=== PATIENT | female | born 1965 ===

== ENCOUNTER 2018-02-08 00:09 | Emergency (ER) | payer OTHER ==
[2018-02-08] MEDS ORDERED: Tdap Vaccine 0.5 ml Vial (10-64 yrs) IM ONE ×2 (01:12→01:23)
--- NOTE | 2018-02-08 01:14 | ED PDOC ---
HPI: Wound Care - HPI Time Seen by Provider: 02/08/18 00:56 Chief Complaint (Nursing): Abnormal Skin Integrity Chief Complaint (Provider): right hand laceration History Per: Patient, Family History Of Present Illness: 52 y/o female presents for lacerations to right hand sustained 3 hours prior to arrival. Patient states she was cleaning dishes and a glass cup broke, cutting her 1st and 2nd digit of right hand. Patient tried applying pressure but bleeding did not stop, which prompted ED visit. Denies headache, dizziness, numbness/weakness right upper extremity, limitation of movement of right upper extremity. Tetanus not up to date. Past Medical History Reviewed: Historical Data, Nursing Documentation, Vital Signs Vital Signs: Last Vital Signs Temp 98.1 F 02/08/18 00:24 Pulse 66 02/08/18 00:24 Resp 18 02/08/18 00:24 BP 224/103 H 02/08/18 00:24 Pulse Ox 99 02/08/18 00:24 - Medical History PMH: HTN (not on meds) - Surgical History Surgical History: No Surg Hx - Family History Family History: States: No Known Family Hx - Living Arrangements Living Arrangements: With Family - Allergies Allergies/Adverse Reactions: Allergies Allergy/AdvReac Type Severity Reaction Status Date / Time No Known Allergies Allergy Verified 02/08/18 00:24 Review of Systems ROS Statement: Except As Marked, All Systems Reviewed And Found Negative Musculoskeletal: Positive for: Hand Pain (laceration to 1st and 2nd digits) Physical Exam - Reviewed Nursing Documentation Reviewed: Yes Vital Signs Reviewed: Yes - Physical Exam Appears: Positive for: Well, Non-toxic, No Acute Distress Pulses-Radial (L): 2+ Pulses-Radial (R): 2+ Extremity: Positive for: Normal ROM, Other (2.5cm curvi-linear laceration dorsal right hand base of 2nd digit extending medially. 1cm skin avulsion distal right hand first digit with minimal active bleeding. FROM. Distal NV/ motor intact) Neurologic/Psych: Positive for: Alert, Oriented. Negative for: Motor/Sensory Deficits - ECG O2 Sat by Pulse Oximetry: 99 - Progress ED Course And Treament: xray, adacel, wound care Gelfoam applied to skin abrasion of base of thumb, wrapped in sterile dressing See procedure note for lac repair of right hand 2nd digit Patient/daughter educated on wound care, advised suture removal 8-10 days. Ice, elevate affected area. Follow up PMD 2-3 days. Return precautions given Procedure: Wound Repair - Indications Indication(s):: Laceration - Location Location:: Right Shape:: Curvilinear Dimensions Length cm: 3cm Depth:: Epidermis - Anesthetic Technique Local/Regional Anesthetic:: Lidocaine 1% - Debris Debris:: None - Irrigated Irrigated with ml of normal saline: 250mL - Complexity Complexity:: Simple (one layer) - Wound repair method Sutures:: # (8), Size (4'0), Type (nonabsorbable), Technique (interrupted) - Muscle repiar layer closed with Muscle repair layer closed with:: Wound well approximated, Abx ointment applied , Dressing applied, Tetanus ordered - Patient tolerated procedure Patient Tolerated Procedure:: Well Disposition - Clinical Impression Clinical Impression: Hand laceration Counseled Patient/Family Regarding: Studies Performed, Diagnosis, Need For Followup - Disposition Referrals: [facility] [Outside] Disposition: Routine/Home Disposition Time: 02:08 Condition: STABLE Instructions: Laceration Repair Print Language: JAMAICAN
[2018-02-08] MEDS ORDERED: Absorbable Gelatin Sponge Size 12-7 ONE (01:22)
[2018-02-08 02:20] VITALS: PULSE 86
[2018-02-08 03:23] VITALS: O2SAT 99
[2018-02-08 03:29] VITALS: BP 137/78; RESP 18; TEMP 98.3
--- NOTE | 2018-02-08 09:31 | RAD ---
PROCEDURE: Right Hand Radiographs. HISTORY: cut hand with glass 1st and 2nd digits COMPARISON: None. FINDINGS: BONES: Normal. No fracture. JOINTS: Normal. No osteoarthritic changes. SOFT TISSUES: No radiopaque foreign bodies are identified. OTHER FINDINGS: None. IMPRESSION: Normal right hand radiographs.
== END 2018-02-08 03:32 | disposition home or self-care (01) ==
LOC: H.ER 00:09
DX: S61.411A Laceration without foreign body of right hand, initial encounter (principal); I10 Essential (primary) hypertension; W25.XXXA Contact with sharp glass, initial encounter; Y93.G1 Activity, food preparation and clean up; Z23 Encounter for immunization

== ENCOUNTER 2018-02-22 10:09 | Emergency (ER) | payer SELFPAY ==
[2018-02-22 10:19] VITALS: BMI 29.8
[2018-02-22 10:21] VITALS: BP 155/92; PULSE 66; RESP 20; TEMP 97.5; O2SAT 98
--- NOTE | 2018-02-22 11:06 | ED PDOC ---
HPI: Wound Care - HPI Time Seen by Provider: 02/22/18 10:57 Chief Complaint (Nursing): Suture/Staple Removal Chief Complaint (Provider): SUTURE REMOVAL History Per: Patient (52 Y/O FEMALE HERE FOR REMOVAL OF SUTURES PLACED 1 WEEK PRIOR. NO COMPLAINTS.) Past Medical History Reviewed: Historical Data, Nursing Documentation, Vital Signs Vital Signs: Last Vital Signs Temp 97.5 F L 02/22/18 10:20 Pulse 66 02/22/18 10:20 Resp 20 02/22/18 10:20 BP 155/92 H 02/22/18 10:20 Pulse Ox 98 02/22/18 10:20 - Medical History PMH: HTN (not on meds) - Family History Family History: States: No Known Family Hx - Allergies Allergies/Adverse Reactions: Allergies Allergy/AdvReac Type Severity Reaction Status Date / Time No Known Allergies Allergy Verified 02/22/18 10:53 Review of Systems ROS Statement: Except As Marked, All Systems Reviewed And Found Negative Physical Exam - Reviewed Nursing Documentation Reviewed: Yes Vital Signs Reviewed: Yes - Physical Exam Appears: Positive for: Well, Non-toxic, No Acute Distress Head Exam: Positive for: ATRAUMATIC, NORMAL INSPECTION, NORMOCEPHALIC Skin: Positive for: Normal Color, Warm, DRY Eye Exam: Positive for: EOMI, Normal appearance, PERRL ENT: Positive for: Normal ENT Inspection Neck: Positive for: Normal, Painless ROM Cardiovascular/Chest: Positive for: Regular Rate, Rhythm Respiratory: Positive for: CNT, Normal Breath Sounds Gastrointestinal/Abdominal: Positive for: Normal Exam, Soft Back: Positive for: Normal Inspection Extremity: Positive for: Normal ROM, Other (SUTURES INTACT. WELL HEALING) Neurologic/Psych: Positive for: Alert, Oriented - ECG O2 Sat by Pulse Oximetry: 98 - Progress ED Course And Treament: SUTURES REMOVED WITHOUT DIFFICULTY. Disposition - Clinical Impression Clinical Impression: Removal of suture - Patient ED Disposition Is Patient to be Admitted: No - Disposition Disposition: Routine/Home Disposition Time: 10:58 Condition: FAIR Instructions: Stitches Removal
== END 2018-02-22 11:00 | disposition home or self-care (01) ==
LOC: H.ER 10:09
DX: Z48.02 Encounter for removal of sutures (principal); I10 Essential (primary) hypertension

== ENCOUNTER 2018-06-28 22:21 | Emergency (ER) | payer SELFPAY ==
[2018-06-28 22:22] VITALS: BMI 29.8
[2018-06-28 23:56] VITALS: BP 149/89; PULSE 67; RESP 18; TEMP 98.2; O2SAT 100
--- NOTE | 2018-06-29 01:13 | ED PDOC ---
Upper Extremity Pain/Injury Time Seen by Provider: 06/29/18 00:09 Chief Complaint (Nursing): Finger,Hand,&Wrist Chief Complaint (Provider): Right hand swelling and pain History Per: Patient History/Exam Limitations: no limitations Onset/Duration Of Symptoms: Hrs Current Symptoms Are (Timing): Still Present Additional Complaint(s): 53 y/o F with hx of HTN who presents after fall onto Right hand this morning after tripping while running to get to work. Patient states that the pain has become unbearable. States that she has pain in fingers, hand and wrist up arm. No numbness or tingling. No head trauma or dizziness. She took Tylenol this morning but has not taken anything since. Past Medical History Reviewed: Historical Data, Nursing Documentation, Vital Signs Vital Signs: Last Vital Signs Temp 98.2 F 06/28/18 23:53 Pulse 67 06/28/18 23:53 Resp 18 06/28/18 23:53 BP 149/89 06/28/18 23:53 Pulse Ox 100 06/28/18 23:53 - Medical History PMH: HTN (not on meds) - Family History Family History: States: Unknown Family Hx - Social History Current smoker - smoking cessation education provided: No Alcohol: None Drugs: Denies - Home Medications Home Medications: Ambulatory Orders Medication Instructions Recorded Ibuprofen [Motrin Tab] 600 mg PO Q6 PRN 5 Days tab 06/29/18 - Allergies Allergies/Adverse Reactions: Allergies Allergy/AdvReac Type Severity Reaction Status Date / Time No Known Allergies Allergy Verified 06/28/18 23:53 Physical Exam - Reviewed Nursing Documentation Reviewed: Yes Vital Signs Reviewed: Yes - Physical Exam Appears: Positive for: Well Head Exam: Positive for: ATRAUMATIC Skin: Positive for: Normal Color Extremity: Positive for: Swelling (+ ecchymosis on palmar and volar aspect of Right hand with swelling of Right anterior wrist and digits 3 - 5. ). Negative for: Normal ROM (decreased flexion of DIP, PIP of digits 3 - 5 on Right hand. Normal ROM of Right wrist and elbow. ) - ECG O2 Sat by Pulse Oximetry: 100 Medical Decision Making Medical Decision Making: Right hand and Right wrist x-ray Ibuprofen 600mg PO x 1 Ice to Right hand Hand and wrist x-ray read by me: no fracture or acute bony abnormality noted Right hand splint. Stable for D/c home with Ibuprofen for pain. Disposition - Clinical Impression Clinical Impression: Injury of right hand Counseled Patient/Family Regarding: Studies Performed, Diagnosis, Need For Followup, Rx Given - Disposition Referrals: [facility] [Outside] Disposition: Routine/Home Disposition Time: 05:31 Condition: STABLE Additional Instructions: Rest right hand, Ice, use hand splint for comfort and Ibuprofen for swelling/pain. Return to ED if pain or swelling worsen. Prescriptions: Ibuprofen [Motrin Tab] 600 mg PO Q6 PRN 5 Days tab PRN Reason: Pain, Moderate (4-7) Forms: Fluency (Lithuanian), [facility] ED School/Work Excuse Print Language: GREENLANDIC
--- NOTE | 2018-06-29 07:51 | RAD ---
Date of service: 06/29/2018 PROCEDURE: Right Wrist Radiographs. HISTORY: fall onto Right hand, swelling of wrist COMPARISON: None. FINDINGS: BONES: Normal. No fracture. JOINTS: Normal. No dislocation. SOFT TISSUES: Normal. OTHER FINDINGS: None. IMPRESSION: Normal right wrist radiographs.
--- NOTE | 2018-06-29 07:52 | RAD ---
PROCEDURE: Right Hand Radiographs. HISTORY: fall onto Right hand, swelling digit 3 - 5 COMPARISON: None. FINDINGS: BONES: Normal. No fracture. 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 OTHER FINDINGS: On some images exaggerated negative ulnar variance perceived could be projectional-nonspecific. IMPRESSION: No fracture. Other findings as above.
== END 2018-06-29 03:14 | disposition home or self-care (01) ==
LOC: H.ER 22:21
DX: S69.91XA Unspecified injury of right wrist, hand and finger(s), initial encounter (principal); W19.XXXA Unspecified fall, initial encounter; Y92.89 Other specified places as the place of occurrence of the external cause; I10 Essential (primary) hypertension